=== PATIENT | female | born 1950 | race African-American/Black ===

== ENCOUNTER 2022-02-19 00:14 | Emergency (ER) | payer MEDICARE ==
[2022-02-19] MEDS ORDERED: Tranexamic Acid 1,000 MG/10 ML VIAL ONE (01:04)
[2022-02-19] MEDS ORDERED: Sodium Chloride 0.9% 100 ML ONE (01:04)
[2022-02-19 01:47] LABS: Anion Gap 14 mmol/L (10-20); Globulin 4.1 g/dL (2.4-3.5)
[2022-02-19 03:47] LABS: BUN (Urea Nitrogen) 26 mg/dL (9.8-20.1); Calc. Creatinine Clearance 0 mL/min (70-130); Carbon Dioxide 22 mmol/L (23-31); Chloride 108 mmol/L (98-107); Estimated GFR 34; Glucose 98 mg/dL (80-115); Potassium 3.9 mmol/L (3.5-5.1); Sodium 140 mmol/L (136-145)
[2022-02-19 03:48] LABS: ALT (SGPT) 16 U/L (8-55); AST (SGOT) 21 U/L (5-34); Albumin 3.2 g/dL (3.4-4.8); Alkaline Phosphatase 140 U/L (40-110); Bilirubin, Total 0.2 mg/dL (0.2-1.2); Calcium 9.4 mg/dL (7.8-10.44); Protein, Total 7.3 g/dL (5.8-8.1)
[2022-02-19 04:42] LABS: Hemoglobin 11.7 g/dL (12.0-16.0); Mean Corpuscular Hemoglobin 32.5 pg (27.0-31.0); Mean Platelet Volume 6.7 fL (7.4-10.4); Platelet Count 414 thou/uL (130-400); RBC Distribution Width 13.4 % (11.5-14.5); White Blood Cell (WBC) Count 7.1 thou/uL (4.8-10.8)
[2022-02-19 04:43] LABS: #Eosinphils 0.2 thou/uL (0.0-0.7); #Lymphocytes 3.2 thou/uL (1.20-3.40); #Monocytes 0.5 thou/uL (0.11-0.59); #Neutrophils 3.2 thou/uL (1.40-6.50); %Basophils 1.1 % (0.0-1.0); %Eosinophils 3.6 % (0.0-10.0); %Lymphocytes 44.4 % (21.0-51.0); %Monocytes 6.8 % (0.0-10.0); %Neutrophils 44.2 % (42.0-75.0)
[2022-02-19 04:44] LABS: #Basophils 0.1 thou/uL (0.0-0.2)
== END 2022-02-19 02:58 | disposition short-term general hospital (02) ==
LOC: NAV ERS 00:14
DX: T78.3XXA Angioneurotic edema, initial encounter (principal); I10 Essential (primary) hypertension; F17.210 Nicotine dependence, cigarettes, uncomplicated; Z79.899 Other long term (current) drug therapy
CPT/HCPCS: 80053; 85025; 96365; J3490

== ENCOUNTER 2023-12-20 20:12 | Emergency (ER) | payer MEDICARE ==
[2023-12-20] MEDS ORDERED: diphenhydrAMINE 25 MG CAP ONE (20:58)
== END 2023-12-20 21:35 | disposition home or self-care (01) ==
LOC: NAV ERS 20:12
DX: T63.441A Toxic effect of venom of bees, accidental (unintentional), initial encounter (principal); L29.9 Pruritus, unspecified; I10 Essential (primary) hypertension; F17.210 Nicotine dependence, cigarettes, uncomplicated; E78.00 Pure hypercholesterolemia, unspecified; Z79.82 Long term (current) use of aspirin; Z79.899 Other long term (current) drug therapy
CPT/HCPCS: 99282